=== PATIENT | male | born 1955 | race Caucasian/White ===

== ENCOUNTER → 2018-01-04 | Outpatient (CLI) | payer OTHER ==
[2018-01-04 14:10] LABS: HEMOGLOBIN A1C 5.4 % (4.5-5.6)
[2018-01-04 15:31] LABS: ALBUMIN 3.6 gm/dl (3.4-5.0); ALT/SGPT 40 U/L (12-78); BLOOD UREA NITROGEN 13 mg/dl (7-18); CARBON DIOXIDE 25 mmol/L (21-32); CHOLESTEROL 220 mg/dl (0-200); GLUCOSE,FASTING 103 mg/dl (70-99); POTASSIUM 4.2 mmol/L (3.5-5.1); SODIUM 139 mmol/L (136-145)
[2018-01-04 15:41] LABS: ALKALINE PHOSPHATASE 81 U/L (45-117); AST/SGOT 25 U/L (15-37); LDL CHOLESTEROL CALCULATED 147 mg/dl; TOTAL PROTEIN 7.6 gm/dl (6.4-8.2)
== END | disposition home or self-care (01) ==
LOC: C.LABPBG 07:30
PROVIDERS: ATTEND Physician Assistant
DX: Z00.00 Encounter for general adult medical examination without abnormal findings (principal); R53.83 Other fatigue; Z13.1 Encounter for screening for diabetes mellitus